=== PATIENT | female | born 1965 | race Caucasian/White ===

== ENCOUNTER 2021-03-22 13:36 | Outpatient (CLI) | payer BC, SELFPAY ==
--- NOTE | 2021-03-22 14:15 | USCV_ITS ---
Arabella Danielle Age: 55 Gender: F : 1965 Exam Date: 03/22/2021 14:13 Ordering Phys: Radha Fabian MD ([email or web address]) Technologist: Jackie May Exam Location: [facility] Indication: CHF BP: 128 / 88 HR: 62 Rhythm: Sinus Technical Quality: Adequate MEASUREMENTS (Male / Female) Normal Values 2D ECHO LV Diastolic Diameter PLAX 5.3 cm 4.2 - 5.9 / 3.9 - 5.3 cm LV Systolic Diameter PLAX 3.6 cm IVS Diastolic Thickness 1.2 cm 0.6 - 1.0 / 0.6 - 0.9 cm IVS Systolic Thickness 1.4 cm LVPW Diastolic Thickness 0.8 cm 0.6 - 1.0 / 0.6 - 0.9 cm LVPW Systolic Thickness 1.9 cm LVOT Diameter 2.5 cm LV Ejection Fraction 2D Teich 58.7 % LV Ejection Fraction MOD 2C 48.2 % LV Ejection Fraction 2C AL 46.4 % LA Diameter 3.9 cm LA Width 3.7 cm LA Height 6.0 cm RA Width 4.3 cm RA Height 5.2 cm Aorta at Sinotubular Diameter 3.5 cm DOPPLER AV Peak Velocity 120.0 cm/s LVOT Peak Velocity 84.0 cm/s AV Area Cont Eq vti 3.7 cm squared AV Area Cont Eq pk 3.3 cm squared MV Peak Velocity 147.0 cm/s MV Area PHT 3.5 cm squared Mitral E to A Ratio 7.4 MV E' Velocity 63.5 cm/s Mitral E to MV E' Ratio 10.6 Mitral E to LV E' Lateral Ratio 9.6 Mitral E to LV E' Septal Ratio 12.0 TR Peak Velocity 256.1 cm/s TR Peak Gradient 26.2 mmHg TR Mean Velocity 186.3 cm/s TR Mean Gradient 15.6 mmHg TR Velocity Time Integral 74.5 cm Right Atrial Pressure 3.0 mmHg Pulmonary Artery Systolic Pressu 29.2 mmHg PV Peak Velocity 108.0 cm/s RV Acceleration Time 0.1 s RV Ejection Time 0.3 s RV AcT/ET 0.4 FINDINGS Left Ventricle Normal left ventricular cavity size. Mildly decreased left ventricular systolic function. Left ventricular ejection fraction is estimated at 50 %. Abnormal septal motion consistent with conduction abnormality. Rhythm precludes evaluation of diastolic function. Right Ventricle Normal right ventricular size and low normal systolic function. Right ventricular systolic pressure 29.2 mmHg. Right Atrium Normal right atrial size. History of atrial septal repair. No evidence of intra-atrial shunt by color and agitated saline study Left Atrium Mildly increased left atrial size. Mitral Valve Mild mitral annular calcification. Mildly thickened mitral valve. No mitral valve stenosis. Trace mitral valve regurgitation. Aortic Valve Structurally normal trileaflet aortic valve. No aortic valve stenosis. No aortic valve regurgitation. Tricuspid Valve Structurally normal tricuspid valve. Trace to mild tricuspid valve regurgitation. Pulmonic Valve Structurally normal pulmonic valve. No pulmonary valve stenosis. Moderate pulmonary valve regurgitation. Pericardium No pericardial effusion. Aorta Normal size aortic root and proximal ascending aorta. Normal- sized inferior vena cava. CONCLUSIONS 1. Normal left ventricular cavity size. Mildly decreased left ventricular systolic function. Left ventricular ejection fraction is estimated at 50 %. Abnormal septal motion consistent with conduction abnormality. 2. Normal right ventricular size and low normal systolic function. 3. Pulmonary artery pressure estimated at 29 mmHg. 4. Moderate pulmonary valve regurgitation. 5. No prior similar studies to compare. Radha Fabian MD (Electronically Signed) Final Date: 23 March 2021 15:04 S
== END 2021-03-22 13:37 | disposition home or self-care (01) ==
LOC: RAD 13:44
PROVIDERS: PCP Nurse Practitioner; Visit Provider Internal Medicine Cardiovascular Disease
DX: I50.9 Heart failure, unspecified (principal); I37.1 Nonrheumatic pulmonary valve insufficiency
CPT/HCPCS: C8929

== ENCOUNTER → 2022-04-27 10:52 | Outpatient (BNVA) | payer OTHER, MEDICAID, SELFPAY | PROVIDERS: PCP Nurse Practitioner; Referring Provider Nurse Practitioner; Visit Provider Student in an Organized Health Care Education/Training Program | DX: G56.02 Carpal tunnel syndrome, left upper limb (principal) | CPT/HCPCS: 73130 ==

== ENCOUNTER → 2022-05-30 13:25 | Outpatient (BNVA) | payer OTHER, BC, MEDICAID, SELFPAY | PROVIDERS: PCP Nurse Practitioner; Referring Provider Nurse Practitioner; Visit Provider Orthopaedic Surgery | DX: M47.22 Other spondylosis with radiculopathy, cervical region (principal); G56.02 Carpal tunnel syndrome, left upper limb | CPT/HCPCS: 72050 ==

== ENCOUNTER 2022-06-06 06:00 | Outpatient (RCR) | payer OTHER, BC, MEDICAID, SELFPAY | END 2022-06-12 23:59 | disposition home or self-care (01) | LOC: GPT 06:00 | PROVIDERS: PCP Nurse Practitioner; Visit Provider Orthopaedic Surgery | DX: M54.2 Cervicalgia (principal) | CPT/HCPCS: 97161 ==

== ENCOUNTER 2022-06-13 06:00 | Outpatient (RCR) | payer OTHER, BC, MEDICAID, SELFPAY | END 2022-07-12 23:59 | disposition home or self-care (01) | LOC: GPT 06:00 | PROVIDERS: PCP Nurse Practitioner; Visit Provider Orthopaedic Surgery | DX: M54.2 Cervicalgia (principal) | CPT/HCPCS: 97110; 97112; 97140 ==

== ENCOUNTER 2022-07-13 06:00 | Outpatient (RCR) | payer OTHER, BC, MEDICAID, SELFPAY | END 2022-07-25 23:59 | disposition home or self-care (01) | LOC: GPT 06:00 | PROVIDERS: PCP Nurse Practitioner; Visit Provider Orthopaedic Surgery | DX: M54.2 Cervicalgia (principal) | CPT/HCPCS: 97110; 97112; 97140; 97164 ==

== ENCOUNTER 2022-08-13 06:00 | Outpatient (RCR) | payer OTHER, BC, MEDICAID, SELFPAY | END 2022-09-12 23:59 | disposition home or self-care (01) | LOC: GPT 06:00 | PROVIDERS: PCP Nurse Practitioner; Visit Provider Nurse Practitioner | DX: M54.9 Dorsalgia, unspecified (principal) | CPT/HCPCS: 97110; 97112; 97140; 97162; 97530 ==

== ENCOUNTER 2022-08-13 06:00 | Outpatient (RCR) | payer OTHER, BC, MEDICAID, SELFPAY | END 2022-09-12 23:59 | disposition home or self-care (01) | LOC: GPT 06:00 | PROVIDERS: Visit Provider Nurse Practitioner | DX: M79.601 Pain in right arm (principal) | CPT/HCPCS: 97110; 97140 ==

== ENCOUNTER 2022-09-13 06:00 | Outpatient (RCR) | payer OTHER, BC, MEDICAID, SELFPAY | END 2022-10-10 23:59 | disposition home or self-care (01) | LOC: GPT 06:00 | PROVIDERS: PCP Nurse Practitioner; Visit Provider Nurse Practitioner | DX: M54.9 Dorsalgia, unspecified (principal); M95.9 Acquired deformity of musculoskeletal system, unspecified | CPT/HCPCS: 97110; 97112; 97140; 97530 ==

== ENCOUNTER 2022-09-25 06:22 | Outpatient (CLI) | payer OTHER, BC, MEDICAID, SELFPAY ==
--- NOTE | 2022-09-25 | ECG_ITS ---
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 Interpretive Statements NAME OF STUDY: LEXISCAN SESTAMIBI STRESS TEST INDICATION: Chest Pain; Shortness of Breath PROCEDURE: At the baseline, the blood pressure was 154/88 mm Hg with a heart rate of 56 bpm. The electrocardiogram showed atrial fibrillation, Right axis deviation. RBBB with secondary ST-T wave changes. ??? The Lexiscan was infused over a period of 20 seconds. A total of 0.4 milligrams of Lexiscan was infused. The stress phase was continued for a total of 5 minutes. Heart rate at the end of the stress phase was 64 bpm with a blood pressure of 116/58 mm Hg. The EKG at the peak infusion revealed no significant ST-T wave changes. The study was terminated due to protocol completion. ??? Sestamibi was injected 20 seconds after the Lexiscan infusion. ??? Blood pressure at the end of the recovery phase was 118/62 mm Hg with a heart rate of 62 beats per minute. ??? CONCLUSION: 1. No significant EKG changes with the LexiScan infusion. 2. No LexiScan induced chest pain or cardiac arrhythmia. 3. Normal blood pressure and heart rate response. 4. Sestamibi/sestamibi perfusion scan pending; see separate report. Electronically Signed On 09-30-2022 10:20:47 SANDBLASTER GLASS by Radha Fabian M.D. [id number]
[2022-09-25 06:48] VITALS: BMI 40.7
--- NOTE | 2022-09-25 07:18 | NMCV_ITS ---
NM darren perf SPECT r/s* [id number] Arabella Danielle Age: 56 Gender: F : 1965 Exam Date: 09/25/2022 07:18 Ordering Phys: Radha Fabian MD ([email or web address]) Technologist: AMBREEN Galicia Exam Location: [facility] Indications: Chest pain STRESS TEST Please see separate stress test report in [facility] for full findings IMAGE PROTOCOL Rest/Stress 1 Lexiscan Day Radiopharmaceutical Dose (mCi) Administration Site Administered by Rest: Tc-99m 10.7 IV AMBREEN Galicia Sestamibi Stress:Tc-99m 32.9 IV AMBREEN Galicia Sestamibi Rest: 25-Sep-2022 60 Discovery 630 Stress: 25-Sep-2022 30 Discovery 630 0.4mg Lexiscan. Supine position only as patient was unable to lay prone. SPECT RESULTS Technical Quality: Good Raw Data Analysis: Normal Image Corrections: No attenuation or motion correction applied Summed Stress Score: 0 Summed Rest Score: 5 Summed Difference Score: 0 PERFUSION FINDINGS There is small sized perfusion abnormality of moderate severity of apical anterior, mid to apical septal and apical cole on rest images with improved tracer uptake on stress images. FUNCTIONAL RESULTS (calculated via Gated SPECT) Stress Image LV EF (%): 49 Stress EDV (mL):154 TID: 1.13 Stress ESV (mL):79 FUNCTIONAL FINDINGS: The left ventricle is normal in size. Transient Ischemia Dilatation of 1.1. The left ventricular ejection fraction is mildly reduced with a value of 49%. There seems to be abnormal septal motion. IMPRESSIONS 1. Myocardial perfusion imaging is normal. Attenuation artifact noted in apical anterior and septal cole. 2. The left ventricular ejection fraction is mildly reduced with a value of 49%. 3. There seems to be abnormal septal motion. 4. EKG portion of the study will be reported separately. 5. No coronary ischemia based on this study. Radha Fabian MD (Electronically Signed) Final Date: 28 September 2022 10:47 S
[2022-09-25] MEDS: regadenoson 0.4 Mg/5 ml Syringe IVP (08:52)
[2022-09-25 09:11] VITALS: BP 116/58; PULSE 62
== END 2022-09-25 06:23 | disposition home or self-care (01) ==
LOC: CDL 06:25
PROVIDERS: PCP Nurse Practitioner; Visit Provider Internal Medicine Cardiovascular Disease
DX: R07.9 Chest pain, unspecified (principal)
CPT/HCPCS: 36415; 78452; 93017; 96374; A9500; J2785

== ENCOUNTER 2022-10-11 06:00 | Outpatient (RCR) | payer OTHER, BC, MEDICAID, SELFPAY | END 2022-11-10 23:59 | disposition home or self-care (01) | LOC: GPT 06:00 | PROVIDERS: PCP Nurse Practitioner; Visit Provider Nurse Practitioner | DX: M54.9 Dorsalgia, unspecified (principal) | CPT/HCPCS: 97110; 97112; 97140; 97164; 97530 ==

== ENCOUNTER 2022-11-11 06:00 | Outpatient (RCR) | payer OTHER, BC, MEDICAID, SELFPAY | END 2022-12-10 23:59 | disposition home or self-care (01) | LOC: GPT 06:00 | PROVIDERS: Visit Provider Nurse Practitioner | DX: M79.601 Pain in right arm (principal) | CPT/HCPCS: 97110; 97140 ==

== ENCOUNTER 2022-11-11 06:00 | Outpatient (RCR) | payer OTHER, BC, MEDICAID, SELFPAY | END 2022-12-10 23:59 | disposition home or self-care (01) | LOC: GPT 06:00 | PROVIDERS: Visit Provider Nurse Practitioner | DX: M25.521 Pain in right elbow (principal) | CPT/HCPCS: 97161 ==

== ENCOUNTER 2022-12-11 07:32 | Outpatient (RCR) | payer OTHER, BC, MEDICAID, SELFPAY | END 2023-01-10 07:32 | disposition home or self-care (01) | LOC: GPT 07:32 | PROVIDERS: Visit Provider Nurse Practitioner | DX: M79.601 Pain in right arm (principal) | CPT/HCPCS: 97110; 97140 ==

== ENCOUNTER 2023-01-11 07:33 | Outpatient (RCR) | payer OTHER, BC, MEDICAID, SELFPAY | END 2023-02-05 12:38 | disposition home or self-care (01) | LOC: GPT 07:33 | PROVIDERS: Visit Provider Nurse Practitioner | DX: M79.601 Pain in right arm (principal) | CPT/HCPCS: 97110; 97140; 97164 ==

== ENCOUNTER 2024-03-12 06:00 | Outpatient (RCR) | payer OTHER, BC, MEDICAID, SELFPAY | END 2024-03-12 23:59 | disposition home or self-care (01) | LOC: GPT 06:00 | PROVIDERS: Visit Provider Student in an Organized Health Care Education/Training Program | DX: M25.551 Pain in right hip (principal); G89.29 Other chronic pain | CPT/HCPCS: 97161 ==

== ENCOUNTER 2024-03-13 06:00 | Outpatient (RCR) | payer OTHER, BC, MEDICAID, SELFPAY | END 2024-04-12 23:59 | disposition home or self-care (01) | LOC: GPT 06:00 | PROVIDERS: Visit Provider Student in an Organized Health Care Education/Training Program | DX: M25.551 Pain in right hip (principal); G89.29 Other chronic pain | CPT/HCPCS: 97110; 97112; 97140 ==

== ENCOUNTER 2024-04-13 06:00 | Outpatient (RCR) | payer OTHER, BC, MEDICAID, SELFPAY | END 2024-04-28 23:59 | disposition home or self-care (01) | LOC: GPT 06:00 | PROVIDERS: Visit Provider Student in an Organized Health Care Education/Training Program | DX: M25.551 Pain in right hip (principal); G89.29 Other chronic pain | CPT/HCPCS: 97110; 97112; 97140 ==